=== PATIENT | male | born 1980 | race Caucasian/White ===

== ENCOUNTER 2019-06-09 09:42 | Day surgery (SDC) | payer OTHER ==
[~2019-06-09] VITALS: Ht 200.7 cm; Wt 174.6 kg
--- NOTE | ~2019-06-09 | H ---
[facility] [place] [address] HISTORY AND PHYSICAL Name: FANTASMA GIL Room #: 150-4 [facility] M.R.#: [id number] Admission: 06/09/19 Attend Phys: Elvis Belle MD Discharge: Date of : 84 Report #: [id number] THIS REPORT FOR: //name// CC: Elvis Patel PREOPERATIVE DIAGNOSIS: Ventral hernia. HISTORY: The patient is a 38-year-old who noticed a bulge above the umbilicus. This probably has been there for years. It is becoming more of an issue over the last 3 weeks. A week ago, the patient has some pain to it, this was related to straining with bowel movement. He is not having prior surgery. No family history of hernia. Because of the patient's large size, a CT was performed. The CT scan showed supraumbilical hernia with a fascia defect of 2.7 x 2.2 cm. It contained fat. The fat looked irritated and edematous. The patient typically has pain located more on the left side on the umbilicus. No nausea or vomiting. No chronic sneezing or coughing. PAST MEDICAL HISTORY: Unremarkable with mild GERD. PAST SURGICAL HISTORY: Fracture of the left radius repaired when he was in high school. No heart disease, lung disease, diabetes, high blood pressure, liver or kidney disease. No bleeding history. No history of blood clot. ALLERGIES: He does not have any allergies to medication. MEDIATION: The patient takes Nexium as needed and Gas-X. FAMILY HISTORY: On maternal side, there was cancer in the family. Heart disease on the paternal side. Mother and father with high blood pressure. SOCIAL HISTORY: The patient does not work. He is disabled. The patient smokes 2 cigarettes a week. He rarely drinks. The patient has some environmental allergy. REVIEW OF SYSTEMS: Has some environmental allergies. No numbness or weakness. Does have some chronic back muscle pain. No shortness of breath, chest pain or palpitation. PHYSICAL EXAMINATION: GENERAL: The patient is a large-sized man. He is alert and oriented, in no acute distress. HEENT: Pupils react to light. Extraocular muscles are intact. NECK: Soft and supple, no masses. LUNGS: Clear to auscultation. HEART: Regular rate and rhythm. No murmur or gallop. ABDOMEN: There is a bulge that measures about 5 cm. This is partially [facility] [address] [place] [address] HISTORY AND PHYSICAL Name: FANTASMA GIL Room #: 150-4 [facility].R.#: [id number] Admission: 06/09/19 Attend Phys: Elvis Belle MD Discharge: Date of : 84 Report #: [id number] reducible. Soft. Mildly tender to palpation. No abdominal mass, guarding, rigidity or rebound. No ascites. EXTREMITIES: No cyanosis, clubbing or edema. Motor and sensory exams are unremarkable. IMPRESSION AND PLAN: The patient is a 38-year-old with a hernia that is pretty large size located above the umbilicus. This is not umbilical hernia. The bulge measures about 5 cm. He is symptomatic with pain especially when he strains for bowel movement. The CT scan shows the fat that was within the hernia, looks inflamed. The patient is recommended to have the hernia repair. The patient was brought in for the procedure. Risk of bleeding, infection and mesh infection were discussed. Hernia recurrence was discussed. By: [id number] Elvis Belle MD /nt
--- NOTE | ~2019-06-09 | O ---
[facility] [place] [address] OPERATIVE REPORT Name: FANTASMA GIL Room #: 150-4 [facility] M.R.#: [id number] Admission: 06/09/19 Attend Phys: Elvis Belle MD Discharge: Date of : 84 Report #: [id number] THIS REPORT FOR: //name// CC: Elvis Patel PREOPERATIVE DIAGNOSIS: Ventral hernia. POSTOPERATIVE DIAGNOSIS: Ventral hernia located above the umbilicus. PROCEDURE PERFORMED: Open repair of ventral hernia with large Ventralex patch. DESCRIPTION OF PROCEDURE: With the patient under general anesthesia, abdomen was prepped and draped in sterile fashion. IV antibiotic was administered. A 0.25% Marcaine was used to anesthetize the skin and subcutaneous tissue. Transverse incision about 5-6 cm was made across the lower epigastrium. A hernia sac was identified. The sac measured about 3 cm wide x 5 cm in length. The sac was opened. This was quite thin, especially on the fascia edge and omental fat was identified inside the hernia sac. Omental fat is adhesed to the sac. These adhesions were taken down. The omentum was then reduced. The sac was then trimmed off. A part of the sac was then closed with 4-0 PDS. Properitoneal space was dissected free. A small portion of the peritoneum of the sac was opened. The properitoneal space was opened up well. A large Ventralex patch was then placed. The patch opened up well. The fascia defect measuring about 2.5 cm was closed with 0 Prolene horizontal mattress fashion x 3 incorporating the strap. Irrigation was performed. Subcutaneous was closed with 4-0 PDS. Skin was closed with 5-0 PDS running subcuticular fashion. Steri-Strips, 4 x 4's, OpSite used for dressing. The patient tolerated the procedure well. By: [id number] Elvis Belle MD /nt
[~2019-06-09 09:42] MED LIST: MUCINEX600 MG PO; NEXIUM20 MG PO
[2019-06-09 12:56] VITALS: BP 154/96
[2019-06-09] MEDS ORDERED: NORCO 5-325 TA1 EAC1 PO (13:08)
[2019-06-09 14:05] VITALS: BP 154/96
== END 2019-06-09 14:35 | disposition home or self-care (01) ==
LOC: OR 09:42 → TBA 09:44 → OR 09:54
DX: K43.9 Ventral hernia without obstruction or gangrene (principal); K21.9 Gastro-esophageal reflux disease without esophagitis; F17.210 Nicotine dependence, cigarettes, uncomplicated; Z98.890 Other specified postprocedural states; Z79.899 Other long term (current) drug therapy
CPT/HCPCS: 50010; 50101; 50386; 50403; 50621; 56524; 56525; 62110; 62900; 70005

== ENCOUNTER 2021-05-23 15:21 | Emergency (ER) | payer OTHER ==
[~2021-05-23] VITALS: Ht 200.7 cm; Wt 165.6 kg
[~2021-05-23 15:21] MED LIST changes: +NORCO 5-325 TA1 EAC1 PO
[2021-05-23 15:46] LABS: ABSOLUTE NEUTROPHILS 3.7 thou/uL (1.4-8.2); EOSINOPHILS 3.8 % (0.0-3.0); HEMATOCRIT 45.3 % (42.0-52.0); HEMOGLOBIN 14.7 gm/dL (14.0-18.0); LYMPHOCYTES 26.8 % (24.0-44.0); MCH 25.5 pg (26.0-34.0); MCHC 32.4 g/dL (28.0-37.0); MCV 78.6 fL (80.0-100.0); MONOCYTES 8.3 % (1.0-8.0); PLATELET COUNT 294 thou/uL (150-400); POLYS 60.1 % (36.0-66.0); RBC 5.76 mil/uL (4.50-6.00); WBC 6.1 thou/uL (4.0-11.0)
[2021-05-23 16:01] LABS: CALCIUM 8.7 mg/dL (8.5-10.1); CREATININE 0.9 mg/dL (0.7-1.3); POTASSIUM 4.1 mmol/L (3.5-5.1)
[2021-05-23 16:07] LABS: ALBUMIN 3.8 g/dL (3.4-5.0); TOTAL BILIRUBIN 0.7 mg/dL (0.2-1.0); TOTAL PROTEIN 7.9 g/dL (6.4-8.2)
[2021-05-23 16:38] LABS: URINE BILIRUBIN NEGATIVE (Negative); URINE BLOOD NEGATIVE (Negative); URINE CLARITY CLEAR; URINE COLOR YELLOW; URINE GLUCOSE-RANDOM* NEGATIVE (Negative); URINE KETONES NEGATIVE (Negative); URINE LEUKOCYTES-REFLEX NEGATIVE (Negative); URINE NITRITE-REFLEX NEGATIVE (Negative); URINE PROTEIN (DIPSTICK) NEGATIVE (Negative); URINE SPECIFIC GRAVITY >= 1.030 (1.005-1.035); URINE UROBILINOGEN 0.2 E.U./dl (0.2-1.0)
[2021-05-23] MEDS ORDERED: VALIUM2 MG PO ×2 (16:56→16:57)
[2021-05-23 17:25] VITALS: BP 145/96
== END 2021-05-23 17:28 | disposition home or self-care (01) ==
LOC: ER 15:21
PROVIDERS: Emergency Medicine
DX: M54.50 Low back pain, unspecified (principal); K21.9 Gastro-esophageal reflux disease without esophagitis; Z79.899 Other long term (current) drug therapy; Z79.891 Long term (current) use of opiate analgesic